=== PATIENT | female | born 1965 | race Caucasian/White ===

== ENCOUNTER 2016-03-29 09:23 | Inpatient (IN) | payer MEDICAID ==
[2016-03-29] MEDS ORDERED: Pharmacy Review for Metformin - IV Contrast Given SCH ×2 (10:00→12:00)
[2016-03-29] MEDS ORDERED: MORPHINE 4 MG/ML INJECTION IV ONE (10:00)
[2016-03-29] MEDS ORDERED: NS 1,000 ML IV ONE (10:00)
[2016-03-29] MEDS ORDERED: ONDANSETRON HCL 4 MG/2 ML VIAL IV ONE (10:00)
[2016-03-29 10:21] LABS: AUTOMATED EOSINOPHIL 2.9 % (0-5); AUTOMATED LYMPH 41.2 % (17-44); AUTOMATED MONOCYTE 7.2 % (3-10); AUTOMATED NEUTROPHIL 47.7 % (45-76); MPV 9.2 fL (7.4-10.4)
[2016-03-29 10:25] LABS: ALLEN'S TEST PASS; BEb -0.3 (+/- 2); TCO2 29.1 MMOL/L (23-27)
[2016-03-29 10:32] LABS: ABG Draw Site Right Radial; ABG Draw Tech SPEMA
[2016-03-29 10:37] LABS: BLOOD UREA NITROGEN 20 MG/DL (7-17); CALC CORRECTED 8.6 MG/DL (8.4-10.2); CALCIUM 8.3 MG/DL (8.4-10.2); CALCULATED OSMOLALITY 277 MOs/Kg (270-290); CHLORIDE 107 mEq/L (98-107); GLUCOSE 120 MG/DL (70-99); SODIUM LEVEL 142 mEq/L (137-146)
[2016-03-29 10:38] LABS: PARTIAL THROMB. TIME 24.2 SEC (22-35)
[2016-03-29 10:53] LABS: LEUKOCYTES/URINE TRACE (NEGATIVE); NITRITE/URINE NEG (NEGATIVE); RBC/URINE 0-2 (0-5); URINE OCCULT BLOOD NEG (NEG/TRACE)
--- NOTE | 2016-03-29 11:06 | DIRPT ---
CLINICAL DATA: Hypoxia, headache for 3 days EXAM: CHEST 2 VIEW COMPARISON: 05/01/2015, 04/03/2015 FINDINGS: The heart size and mediastinal contours are within normal limits. Both lungs are clear. The visualized skeletal structures are unremarkable. IMPRESSION: No active cardiopulmonary disease. Electronically Signed By: Tatum Zhao On: 03/29/2016 11:03
--- NOTE | 2016-03-29 11:09 | DIRPT ---
CLINICAL DATA: Headaches EXAM: CT HEAD WITHOUT CONTRAST TECHNIQUE: Contiguous axial images were obtained from the base of the skull through the vertex without intravenous contrast. COMPARISON: 05/01/2015 FINDINGS: Some motion artifact is noted. The bony calvarium is intact. The ventricles are of normal size and configuration. No findings to suggest acute hemorrhage, acute infarction or space-occupying mass lesion are noted. IMPRESSION: No acute intracranial abnormality is noted. Some motion artifact is noted. Electronically Signed By: Jose Garcia M.D. On: 03/29/2016 11:06
[2016-03-29] MEDS ORDERED: KETOROLAC TROMETH 30 MG/ML VIAL IV STA (11:24)
[2016-03-29] MEDS ORDERED: HYDROmorphone 1 MG INJECTION IV ONE ×2 (11:26→14:15)
--- NOTE | 2016-03-29 13:19 | EDPRACDOC ---
- General Information Chief Complaint: Headache Stated Complaint: HEADACHE Time Seen by Provider: 03/29/16 09:41 Information Source: Patient Mode Of Arrival: Ambulance Home Medications: Home Medications Levothyroxine Sodium [Synthroid] 112 mcg PO DAILY 08/31/13 Lisinopril/Hydrochlorothiazide [Zestoretic 20-25 mg Tablet] 1 tab PO DAILY 12/01 Cholecalciferol (Vitamin D3) [Vitamin D3] 4,000 unit PO DAILY 04/03/15 Quetiapine Fumarate [Seroquel Xr] 400 mg PO QHS 04/03/15 Alprazolam [Xanax] 1 mg PO Q8H PRN 05/01/15 Allergies/Adverse Reactions: Allergies Allergy/AdvReac Type Severity Reaction Status Date / Time nitrofurantoin Allergy Severe Hives* Verified 03/29/16 09:49 macrocrystalline [From Macrodantin] amoxicillin [Amoxicillin] Allergy Unknown Rash-Genera Verified 03/29/16 09:49 lized sulfamethoxazole AdvReac Unknown Rash-Genera Verified 03/29/16 09:49 [From Septra] lized trimethoprim [From Septra] AdvReac Unknown Rash-Genera Verified 03/29/16 09:49 lized - History of Present Illness Onset: LAST NIGHT HPI: PT PRESENTS STATING SHE HAS A BURNING HEADACHE ON THE LEFT SIDE OF HER HEAD. STATES SHE HAS BLURRED VISION, NAUSEA AND VOMITING, AND BODY ACHES THAT BEGAN YESTERDAY. STATES THIS IS THE WORST HEADACHE OF HER LIFE Location: Reports: Occipital Pain Quality: Reports: Moderate, Worst Headache of life Modifying Factors: improves with: Exposure to light, Movement Relevant History of: Reports: Known Headache disorder Associated Signs and Symptoms: Reports: Nausea/Vomiting, Vision Changes. Denies : Stiff Neck ED Past Medical History - History Reviewed Yes Nurses notes reviewed and agree except as marked - Patient Medical History Cardiac History: Reports: Hypertension, Hypercholesterolemia Respiratory History: Reports: Asthma GI/ History: Denies: Urinary Tract Infection Psychological History: Reports: Anxiety. Denies: Depression Systemic History: Reports: Hypothyroidism Additional Past Medical History: CHRONIC PAIN Date of Last Radiation Treatment: N/A Date of Last Chemotherapy Date: N/A - Family Medical History Reports: Hypertension (MOTHER, FATHER, SISTERS), Diabetes (SISTER), Cancer (AUNT -BREAST), Stroke (SISTER), Cardiac Disorders (MOTHER AT 53 DC) - Social Medical History Smoking Status: Never smoker EDM Review of Systems - Review of Systems ROS Negative Except as Marked: Yes All systems reviewed and were negative except as marked - Physical Exam Constitutional: Alert Oriented to: Time, Person, Place Last recorded Vital Signs: Last Vital Signs Temp 98 F 03/29/16 09:29 Pulse 80 03/29/16 12:46 Resp 18 03/29/16 12:46 BP 138/91 03/29/16 12:46 Pulse Ox 90 L 03/29/16 12:46 Oxygen Pulse Oxygen Saturation 90 O2 Device Nasal Cannula Oxygen Flow Rate 2 Fraction of Inspired Oxygen ( FIO2) - HEENT Head: Normal ( normocephalic) Eye Exam: Normal (PERRL, EOMI, Sclera white) Oropharynx: Normal (Pharynx:Moist without exudate,Gums-no swelling) Tympanic Membrane: Normal Nose: No Symptoms Reported (septum midline) Neck: Normal (FROM, trachea at midline) - Respiratory/Cardiovascular Respiratory: Normal - CTA (BBS clear to auscultation without adventitious sounds ) Cardiovascular: Normal (RRR without murmur, gallop or rub) - GI Auscultation: Normal (NABS) Palpation: Normal (Soft,No rebound or guarding, non distended) Tenderness: Non tender Rankin's Sign: Negative Rectal Exam: Deferred - Musculoskeletal Back: Normal (Non-Tender) Extremities: Normal (Normal tone, Pulses 2+ No cyanosis or edema, FROM) - Integumentary Skin: Normal, Warm, Dry Lymphatics: Normal (no adenopathy) - Neurologic Memory Impaired: Normal Motor Function: Normal (Normal tone, Pulses 2+ No cyanosis or edema, FROM) Cranial Nerve: Normal (CN II-X11 intact sensation, strength 5/5) Cerebellar: Normal Mood Description: Normal Perception: Normal - Differential Diagnosis Migraine, Hypertensive, Other - Results 03/29/16 10:08 03/29/16 10:08 WBC 5.6 xk/uL (3.8-10.8) 03/29/16 10:08 RBC 4.66 xM/uL (4.20-5.40) 03/29/16 10:08 Hgb 12.3 g/dL (12.0-16.0) 03/29/16 10:08 Hct 38.6 % (36-47) 03/29/16 10:08 MCV 83 fL (81-99) 03/29/16 10:08 MCH 26.5 pg (27-32) L 03/29/16 10:08 MCHC 32.0 g/dl (33-36) L 03/29/16 10:08 RDW 15.6 % (11.5-14.5) H 03/29/16 10:08 Plt Count 214 xk/uL (130-400) 03/29/16 10:08 MPV 9.2 fL (7.4-10.4) 03/29/16 10:08 Neut % (Auto) 47.7 % (45-76) 03/29/16 10:08 Lymph % (Auto) 41.2 % (17-44) 03/29/16 10:08 Mcdonald % (Auto) 7.2 % (3-10) 03/29/16 10:08 Eos % (Auto) 2.9 % (0-5) 03/29/16 10:08 Baso % (Auto) 1.0 % (0-2) 03/29/16 10:08 Absolute Neuts (auto) 2.63 xk/uL (1.7-8.2) 03/29/16 10:08 Absolute Lymphs (auto) 2.30 xk/uL (0.65-4.75) 03/29/16 10:08 PT 10.0 SEC (9.2-11.2) 03/29/16 10:08 INR 1.0 03/29/16 10:08 APTT 24.2 SEC (22-35) 03/29/16 10:08 Puncture Site Right radial 03/29/16 10:15 pH 7.290 pH UNITS (7.35-7.45) L 03/29/16 10:15 pCO2 57.0 mmHg (35-45) H 03/29/16 10:15 pO2 58.0 mmHg (80-100) L 03/29/16 10:15 HCO3 27.4 MMOL/L (22-26) H 03/29/16 10:15 Total CO2 29.1 MMOL/L (23-27) H 03/29/16 10:15 Base Excess -0.3 (+/- 2) 03/29/16 10:15 FiO2 % 21 03/29/16 10:15 Specimen Drawn By Spema 03/29/16 10:15 Sodium 142 mEq/L (137-146) 03/29/16 10:08 Potassium 4.4 mEq/L (3.5-5.1) 03/29/16 10:08 Chloride 107 mEq/L (98-107) 03/29/16 10:08 Carbon Dioxide 25 mMOL/L (22-33) 03/29/16 10:08 Anion Gap 14 mEq/L (8-16) 03/29/16 10:08 BUN 20 MG/DL (7-17) H 03/29/16 10:08 Creatinine 0.90 MG/DL (0.52-1.04) 03/29/16 10:08 Estimated GFR (MDRD) > 60 mL/min (>=60) 03/29/16 10:08 Glucose 120 MG/DL (70-99) H 03/29/16 10:08 Calculated Osmolality 277 MOs/Kg (270-290) 03/29/16 10:08 Calcium 8.3 MG/DL (8.4-10.2) L 03/29/16 10:08 Corrected Calcium 8.6 MG/DL (8.4-10.2) 03/29/16 10:08 Total Bilirubin 0.4 MG/DL (0.2-1.3) 03/29/16 10:08 AST 29 IU/L (14-36) 03/29/16 10:08 ALT 33 IU/L (9-52) 03/29/16 10:08 Alkaline Phosphatase 63 IU/L (38-126) 03/29/16 10:08 Creatine Kinase 70 IU/L (30-134) 03/29/16 10:08 Troponin I 0.01 ng/mL (<.04) 03/29/16 10:08 Jsh-P-Weduqmptcva Pept 133 pg/mL (0-450) 03/29/16 10:08 Total Protein 7.0 G/DL (6.3-8.2) 03/29/16 10:08 Albumin 3.7 G/DL (3.5-5.0) 03/29/16 10:08 Urine Color Yellow 03/29/16 10:36 Urine Clarity Sl cldy 03/29/16 10:36 Urine pH 6.0 (5.0-8.0) 03/29/16 10:36 Ur Specific Pep 1.010 (1.003-1.035) 03/29/16 10:36 Urine Protein Neg (NEG/TRACE) 03/29/16 10:36 Urine Glucose (UA) Neg (NEGATIVE) 03/29/16 10:36 Urine Ketones Neg (NEGATIVE) 03/29/16 10:36 Urine Occult Blood Neg (NEG/TRACE) 03/29/16 10:36 Urine Nitrite Neg (NEGATIVE) 03/29/16 10:36 Urine Bilirubin Neg (NEGATIVE) 03/29/16 10:36 Urine Urobilinogen <2.0 MG/DL (0-1) 03/29/16 10:36 Ur Leukocyte Esterase Trace (NEGATIVE) H 03/29/16 10:36 Urine RBC 0-2 (0-5) 03/29/16 10:36 Urine WBC 5-10 (0-5) H 03/29/16 10:36 Ur Epithelial Cells Occ 03/29/16 10:36 Urine Bacteria Few (NEG/FEW) 03/29/16 10:36 Microbiology 03/29/16 10:10 Influenza Type A Antigen Screen - Final N/P - Naso/Pharyngeal NEGATIVE Please note: A NEGATIVE result does not exclude an influenza virus infection. It is a presumptive result and, if required, confirmation should be done using either a virus culture or an FDA-cleared influenza A&B molecular assay. ("NORMAL" value = "NEGATIVE".) Influenza Type B Antigen Screen - Final NEGATIVE Please note: A NEGATIVE result does not exclude an influenza virus infection. It is a presumptive result and, if required, confirmation should be done using either a virus culture or an FDA-cleared influenza A&B molecular assay. ("NORMAL" value = "NEGATIVE".) Lab Results 03/29/16 03/29/16 03/29/16 10:36 10:15 10:08 WBC RBC Hgb Hct MCV MCH MCHC RDW Plt Count MPV Neut % (Auto) Lymph % (Auto) Mcdonald % (Auto) Eos % (Auto) Baso % (Auto) Absolute Neuts (auto) Absolute Lymphs (auto) PT 10.0 INR 1.0 APTT 24.2 Puncture Site Right radial pH 7.290 L pCO2 57.0 H pO2 58.0 L HCO3 27.4 H Total CO2 29.1 H Base Excess -0.3 FiO2 % 21 Specimen Drawn By Spema Sodium Potassium Chloride Carbon Dioxide Anion Gap BUN Creatinine Estimated GFR (MDRD) Glucose Calculated Osmolality Calcium Corrected Calcium Total Bilirubin AST ALT Alkaline Phosphatase Creatine Kinase Troponin I Dkz-X-Ndxepcyluzs Pept Total Protein Albumin Urine Color Yellow Urine Clarity Sl cldy Urine pH 6.0 Ur Specific Pep 1.010 Urine Protein Neg Urine Glucose (UA) Neg Urine Ketones Neg Urine Occult Blood Neg Urine Nitrite Neg Urine Bilirubin Neg Urine Urobilinogen <2.0 Ur Leukocyte Esterase Trace H Urine RBC 0-2 Urine WBC 5-10 H Ur Epithelial Cells Occ Urine Bacteria Few 03/29/16 03/29/16 03/29/16 10:08 10:08 10:08 WBC 5.6 RBC 4.66 Hgb 12.3 Hct 38.6 MCV 83 MCH 26.5 L MCHC 32.0 L RDW 15.6 H Plt Count 214 MPV 9.2 Neut % (Auto) 47.7 Lymph % (Auto) 41.2 Mcdonald % (Auto) 7.2 Eos % (Auto) 2.9 Baso % (Auto) 1.0 Absolute Neuts (auto) 2.63 Absolute Lymphs (auto) 2.30 PT INR APTT Puncture Site pH pCO2 pO2 HCO3 Total CO2 Base Excess FiO2 % Specimen Drawn By Sodium 142 Potassium 4.4 Chloride 107 Carbon Dioxide 25 Anion Gap 14 BUN 20 H Creatinine 0.90 Estimated GFR (MDRD) > 60 Glucose 120 H Calculated Osmolality 277 Calcium 8.3 L Corrected Calcium 8.6 Total Bilirubin 0.4 AST 29 ALT 33 Alkaline Phosphatase 63 Creatine Kinase 70 Troponin I 0.01 Ypl-P-Cyezlqizmjm Pept 133 Total Protein 7.0 Albumin 3.7 Urine Color Urine Clarity Urine pH Ur Specific Pep Urine Protein Urine Glucose (UA) Urine Ketones Urine Occult Blood Urine Nitrite Urine Bilirubin Urine Urobilinogen Ur Leukocyte Esterase Urine RBC Urine WBC Ur Epithelial Cells Urine Bacteria - EKG EKG #1 EKG Time: 09:35 -: Yes EKG interpreted by me Rate: bpm: 82 [place]: Normal Rhythm: NSR Block: None Hypertrophy: None ST: Old, Ant, Infarct - Departure Condition: Stable Education/Counseling Given To: Patient Education/Counseling Given Regarding: Diagnosis, Treatment, Prognosis, Follow Up Referrals: Jayde Taylor NP [Primary Care Provider] - One Week
[2016-03-29 13:33] LABS: CPK TOTAL WITH POSSIBLE MB 62 IU/L (30-134)
--- NOTE | 2016-03-29 13:51 | DIRPT ---
CLINICAL DATA: Acute hypoxemia. EXAM: CT ANGIOGRAPHY CHEST WITH CONTRAST TECHNIQUE: Multidetector CT imaging of the chest was performed using the standard protocol during bolus administration of intravenous contrast. Multiplanar CT image reconstructions and MIPs were obtained to evaluate the vascular anatomy. CONTRAST: 100 mL Isovue 370 COMPARISON: Chest CT on 03/17/2008 FINDINGS: Mediastinum/Lymph Nodes: No pulmonary emboli or thoracic aortic dissection identified. Heart size is at the upper limits of normal. No evidence of pericardial effusion. No masses or pathologically enlarged lymph nodes identified. Lungs/Pleura: No pulmonary mass, infiltrate, or effusion. Mild scarring noted in inferior lingula. Sub-cm pulmonary nodule in lateral right lung base and small bulla in lateral left lung base remains stable. Upper abdomen: No acute findings. Musculoskeletal: No chest wall mass or suspicious bone lesions identified. Review of the MIP images confirms the above findings. IMPRESSION: No evidence of pulmonary embolism or other active disease within the thorax. Electronically Signed By: Reji Coronado M.D. On: 03/29/2016 13:48
[2016-03-29] MEDS ORDERED: ALBUTEROL 0.083% 3 ML NEB NEB STA (14:08)
--- NOTE | 2016-03-29 14:35 | HISTPHYS ---
- Chief Complaint Cough past week started dry and now coughing up yellow material also complains left sided headache - History of Present Illness Primary care provider is Mallory @ Dr. Cho's office. Patient very pleasant 50-year-old obese white female whose smokes denies it herself. She comes into the emergency room today complaining of achy sensation all over particularly the left frontal region of her head for the past 3 days, similar to previous migraines not exactly the same. She says the headaches her the worst in her life. She was given Toradol in the emergency room with some relief. Most recently she has noticed that her dry cough has become productive of yellowish phlegm. She complains of some wheezing. She has a history of bipolar disorder and is disabled from this as well as chronic pain associated with a knee injury and herniated lumbar disc. 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 Hypertension hypothyroidism are to other issues with which she deals. - Medical History Cardiac History: Reports: Hypertension, Hypercholesterolemia Respiratory History: Reports: Asthma GI/ History: Denies: Urinary Tract Infection Musculoskeletal History: Reports: Arthritis (Chronic low back pain associated with herniated disc) Systemic History: Reports: Hypothyroidism Psychological History: Reports: Anxiety. Denies: Depression - Medictions/Allergies Allergies nitrofurantoin macrocrystalline [From Macrodantin] Allergy (Severe, Verified 09:49) Hives* amoxicillin [Amoxicillin] Allergy (Unknown, Verified 03/29/16 09:49) Rash-Generalized sulfamethoxazole [From Septra] Adverse Reaction (Unknown, Verified 03/29/16 09: 49) Rash-Generalized trimethoprim [From Septra] Adverse Reaction (Unknown, Verified 03/29/16 09:49) Rash-Generalized Current Medication List: Reviewed Home Medications Levothyroxine Sodium [Synthroid] 112 mcg PO DAILY 08/31/13 Lisinopril/Hydrochlorothiazide [Zestoretic 20-25 mg Tablet] 1 tab PO DAILY 12/01 Cholecalciferol (Vitamin D3) [Vitamin D3] 4,000 unit PO DAILY 04/03/15 Quetiapine Fumarate [Seroquel Xr] 400 mg PO QHS 04/03/15 Alprazolam [Xanax] 1 mg PO Q8H PRN 05/01/15 - Family History Reports: Hypertension (MOTHER, FATHER, SISTERS), Diabetes (SISTER), Cancer (AUNT -BREAST), Stroke (SISTER), Cardiac Disorders (MOTHER AT 53 ND) - Social History Travel Outside of [place] in the Last 3 Months?: No Lives: with Spouse Smoking Status: Never smoker (Unfortunately her smokes) Social History: Denies: Alcohol Use, Substance Use Disorder - Review of Systems Constitutional: Fatigue, Weakness Eyes: No Symptoms Reported (No blurry vision, visual changes, eye pain, or eye redness.) Ears: No Symptoms Reported (No ear pain or discharge) Nose: No Symptoms Reported (No nasal discharge/congestion or bleeding) Mouth: No Symptoms Reported (No oropharyngeal lesions or erythema) Throat/Neck: No Symptoms Reported (No throat pain or swelling.No oropharyngeal lesions or erythema.) Respiratory: Cough, Sputum (Yellowish sputum) Cardiovascular: No Symptoms Reported (No chest pain or palpitations.) Neurological: Headache (Migraine), Tingling (Hands and arms) Musculoskeletal:: Chronic low back pain Integumentary: No Symptoms Reported (no rashes or lesions) Allergic/Immunologic: No Symptoms Reported (no rashes or lesions) Hematologic: No Symptoms Reported (No chronic anemia, bleeding, or easy bruising.), Other (Lymphatics- no lymph node swelling or pain.) Endocrine: Hypothyroidism Psychiatric: No Symptoms Reported (Fully oriented, with normal and appropriate affect.) - Physical Exam Vital Signs: Initial Vitals Temperature 98 F 03/29/16 09:29 Pulse Rate 79 03/29/16 09:29 Respiratory Rate 20 03/29/16 09:29 Blood Pressure 172/112 H 03/29/16 09:29 Pulse Oxygen Saturation 94 03/29/16 09:29 Constitutional: Alert (Awake, Fully oriented. Normal and appropriate affect.Well appearing. Well nourished.), No apparent distress Oriented to: Time, Person, Place - HEENT Head: Normal (normocephalic, atraumatic.), Other (No cervical lymphadenopathy. No supraclavicular lymphadenopathy. Neck: No palpable mass, supple , trachea midline.) Eye: Normal (pupils equal, reactive to light, and round; EOMI, Sclera white) Oropharynx: Normal (Pharynx: Moist without exudate,Gums-no swelling, No oropharyngeal lesions or erythema, Mucous membranes are dry.) ENT EAC: Normal (No oropharyngeal lesions or erythema. Mucous membranes are dry. ) TMJ: Normal Nose: No Symptoms Reported (septum midline, Nares patent, without discharge or bleeding.) Respiratory: Diminished, Rhonchi (Rare rhonchi), Wheezes Cardiovascular: Normal (RRR , Normal S1, S2. No murmurs, rubs, or gallops. PMI non-displaced. Carotids: no carotid bruits. No bradycardia or tachycardia. DP pulses 2+ bilaterally.) - GI Auscultation: Normal (normal active sounds) Palpation: Normal (Soft,non distended,nontender. No hepatosplenomegaly.) Tenderness: Non tender (No rebound or guarding) Rankin's Sign: Negative - Exam Deferred: Yes - Musculoskeletal Back: Normal (Non-Tender) Extremities: Normal (Normal tone, DP pulses 2+ bilaterally, No cyanosis or edema bilaterally, FROM bilaterally.) Spine: normal alignment, limited range of motion - Integumentary Skin: Normal (Clean, dry, and intact. No rashes. No lesions.) Lymphatics: Normal (No cervical lymphadenopathy. No supraclavicular lymphadenopathy.) - Neurologic Memory Impaired: Normal Motor Function: Normal (Motor 5/5 throughout.Normal tone, Pulses 2+ No cyanosis or edema, FROM) Cranial Nerve: Normal (CN II-XII intact sensation, strength 5/5) Cerebellar: Normal. negative: Ataxia, Past-Pointing, Tremor Mood Description: Normal (Fully oriented. Normal and appropriate affect.) Thought: Coherent Perception: Normal (Normal and appropriate affect.) - Focused CV Perfusion Exam Vital Signs: Last Vital Signs Temp 98 F 03/29/16 09:29 Pulse 73 03/29/16 13:14 Resp 20 03/29/16 13:14 BP 138/91 03/29/16 13:14 Pulse Ox 96 03/29/16 13:14 - Lab Results 03/29/16 10:08 03/29/16 10:08 Laboratory Results - last 24 hr 03/29/16 03/29/16 03/29/16 10:08 10:08 10:08 WBC 5.6 RBC 4.66 Hgb 12.3 Hct 38.6 MCV 83 MCH 26.5 L MCHC 32.0 L RDW 15.6 H Plt Count 214 MPV 9.2 Neut % (Auto) 47.7 Lymph % (Auto) 41.2 [place] % (Auto) 7.2 Eos % (Auto) 2.9 Baso % (Auto) 1.0 Absolute Neuts (auto) 2.63 Absolute Lymphs (auto) 2.30 PT INR APTT Puncture Site pH pCO2 pO2 HCO3 Total CO2 Base Excess FiO2 % Specimen Drawn By Sodium 142 Potassium 4.4 Chloride 107 Carbon Dioxide 25 Anion Gap 14 BUN 20 H Creatinine 0.90 Estimated GFR (MDRD) > 60 Glucose 120 H Calculated Osmolality 277 Calcium 8.3 L Corrected Calcium 8.6 Total Bilirubin 0.4 AST 29 ALT 33 Alkaline Phosphatase 63 Creatine Kinase 70 Troponin I 0.01 Trq-Y-Dqzctndkwsh Pept 133 Total Protein 7.0 Albumin 3.7 Urine Color Urine Clarity Urine pH Ur Specific [place] Urine Protein Urine Glucose (UA) Urine Ketones Urine Occult Blood Urine Nitrite Urine Bilirubin Urine Urobilinogen Ur Leukocyte Esterase Urine RBC Urine WBC Ur Epithelial Cells Urine Bacteria 03/29/16 03/29/16 03/29/16 10:08 10:15 10:36 WBC RBC Hgb Hct MCV MCH MCHC RDW Plt Count MPV Neut % (Auto) Lymph % (Auto) [place] % (Auto) Eos % (Auto) Baso % (Auto) Absolute Neuts (auto) Absolute Lymphs (auto) PT 10.0 INR 1.0 APTT 24.2 Puncture Site Right radial pH 7.290 L pCO2 57.0 H pO2 58.0 L HCO3 27.4 H Total CO2 29.1 H Base Excess -0.3 FiO2 % 21 Specimen Drawn By Spema Sodium Potassium Chloride Carbon Dioxide Anion Gap BUN Creatinine Estimated GFR (MDRD) Glucose Calculated Osmolality Calcium Corrected Calcium Total Bilirubin AST ALT Alkaline Phosphatase Creatine Kinase Troponin I Zyg-A-Ysqpkturujw Pept Total Protein Albumin Urine Color Yellow Urine Clarity Sl cldy Urine pH 6.0 Ur Specific [place] 1.010 Urine Protein Neg Urine Glucose (UA) Neg Urine Ketones Neg Urine Occult Blood Neg Urine Nitrite Neg Urine Bilirubin Neg Urine Urobilinogen <2.0 Ur Leukocyte Esterase Trace H Urine RBC 0-2 Urine WBC 5-10 H Ur Epithelial Cells Occ Urine Bacteria Few 03/29/16 03/29/16 13:14 16:05 WBC RBC Hgb Hct MCV MCH MCHC RDW Plt Count MPV Neut % (Auto) Lymph % (Auto) [place] % (Auto) Eos % (Auto) Baso % (Auto) Absolute Neuts (auto) Absolute Lymphs (auto) PT INR APTT Puncture Site pH pCO2 pO2 HCO3 Total CO2 Base Excess FiO2 % Specimen Drawn By Sodium Potassium Chloride Carbon Dioxide Anion Gap BUN Creatinine Estimated GFR (MDRD) Glucose Calculated Osmolality Calcium Corrected Calcium Total Bilirubin AST ALT Alkaline Phosphatase Creatine Kinase 62 Troponin I < 0.01 < 0.01 Oht-W-Jhgvyovaadv Pept Total Protein Albumin Urine Color Urine Clarity Urine pH Ur Specific [place] Urine Protein Urine Glucose (UA) Urine Ketones Urine Occult Blood Urine Nitrite Urine Bilirubin Urine Urobilinogen Ur Leukocyte Esterase Urine RBC Urine WBC Ur Epithelial Cells Urine Bacteria - Assessment (1) Acute respiratory failure J96.00 - ACUTE RESPIRATORY FAILURE, UNSP W HYPOXIA OR HYPERCAPNIA Acute Present on Admission: Yes Qualifiers: Respiratory failure complication: hypoxia Qualified Code(s): J96.01 - Acute respiratory failure with hypoxia O2 sat dropped into the 80s initially and warrants administration of supplemental O2. (2) COPD exacerbation J44.1 - CHRONIC OBSTRUCTIVE PULMONARY DISEASE W (ACUTE) EXACERBATION Acute Present on Admission: Yes Inhalation therapy consisting of DuoNeb, Singulair, IV antibiotics consisting Rocephin Zithromax and intensive respiratory therapy. Reluctant to give her steroids given her history of bipolar disorder. More likely to give her inhaled steroids. (3) Headache R51 - HEADACHE Acute Present on Admission: Yes IV Toradol was used successfully in the emergency room which I will continue for the next 24-48 hours only. (4) Hypertensive urgency I10 - ESSENTIAL (PRIMARY) HYPERTENSION Acute Present on Admission: Yes Continuation of previous antihypertensive therapy is ordered. (5) Hypothyroidism E03.9 - HYPOTHYROIDISM, UNSPECIFIED Acute Present on Admission: Yes Qualifiers: Hypothyroidism type: acquired Qualified Code(s): E03.9 - Hypothyroidism, unspecified Check TSH and continue previous Synthroid. (6) Secondhand smoke exposure Z77.22 - CNTCT W AND EXPSR TO ENVIRON TOBACCO SMOKE (ACUTE) (CHRONIC) Chronic Present on Admission: Yes I advised her to go outside and smoke is it was damaging to her lungs. Case Care Discussed with: Patient, Nursing Staff, Resource Management Total Time: One Hour 18 minutes Critical Care: No Code: [id number]
[2016-03-29] MEDS: AZITHROMYCIN 500 MG in D5W 250 ML IV SCH (15:57)
[2016-03-29 15:58] VITALS: BMI 37.7
[2016-03-29] MEDS ORDERED: Vaccine Screening Complete SCH (17:00)
[2016-03-29] MEDS ORDERED: KETOROLAC TROMETH 30 MG/ML VIAL IV SCH (18:00)
[2016-03-29] MEDS: CEFTRIAXONE 1 GM in D5W 100 ML IV SCH (18:06)
[2016-03-29] MEDS ORDERED: ALBUTEROL 0.083% 3 ML NEB NEB PRN (18:37)
[2016-03-29] MEDS ORDERED: Non-Formulary Medication ITEM (Alprazolam [Xanax] 1 MG) PO PRN (18:44)
[2016-03-29] MEDS ORDERED: ACETAMINOPHEN 325 MG SUPP PR PRN (18:50)
[2016-03-29] MEDS ORDERED: PROMETHAZINE 25 MG/ML VIAL IV PRN (18:50)
[2016-03-29] MEDS ORDERED: TUSSIONEX 5 ML ORAL SYRINGE PO PRN (18:50)
[2016-03-29] MEDS ORDERED: BISACODYL 10 MG SUPP PR PRN (18:50)
[2016-03-29] MEDS ORDERED: ONDANSETRON HCL 4 MG/2 ML VIAL IV PRN (18:50)
[2016-03-29] MEDS ORDERED: SENNA CONCENTRATE TAB PO PRN (18:50)
[2016-03-29] MEDS: ALPRAZOLAM 0.5 MG TAB PO PRN (19:40)
[2016-03-29] MEDS: OXYCODONE HCL 5 MG TABLET PO SCH (19:42)
[2016-03-29] MEDS: ENOXAPARIN 40 MG/0.4 ML PFS SQ SCH (19:42)
[2016-03-29] MEDS: PROBIOTIC BLEND TAB PO SCH (19:42)
[2016-03-29] MEDS: MONTELUKAST SODIUM 10 MG TAB PO SCH (19:42)
[2016-03-29] MEDS: AMLODIPINE 10 MG TAB PO SCH (19:43)
[2016-03-29] MEDS: Albuterol/Ipratropium Neb 3 ML NEB NEB SCH (19:50)
[2016-03-29] MEDS: BUDESONIDE 0.5 MG NEB NEB SCH (19:52)
[2016-03-29] MEDS ORDERED: Non-Formulary Medication ITEM (Oxycodone Hcl [Oxycodone Immediate Release] 10 MG) PO SCH (21:00)
[2016-03-29] MEDS ORDERED: QUETIAPINE FUMARATE 400 MG PO SCH (21:00)
[2016-03-29] MEDS: BENZONATATE 100 MG PERLES PO SCH (21:19)
[2016-03-29] MEDS: QUETIAPINE FUMARATE PO SCH (21:20)
[2016-03-29] MEDS: IBUPROFEN 400 MG TAB PO PRN (22:10)
[2016-03-30] MEDS: Albuterol/Ipratropium Neb 3 ML NEB NEB SCH ×4 (01:09→19:39)
[2016-03-30] MEDS: ACETAMINOPHEN 325 MG/TAB TABLET PO PRN ×2 (01:51→10:07)
[2016-03-30] MEDS: PANTOPRAZOLE 40 MG TAB PO SCH (05:33)
[2016-03-30] MEDS: BENZONATATE 100 MG PERLES PO SCH ×3 (05:33→19:34)
[2016-03-30] MEDS: IBUPROFEN 400 MG TAB PO PRN ×2 (05:35→10:07)
[2016-03-30] MEDS ORDERED: LEVOTHYROXINE 112 MCG (0.112 MG) TAB PO SCH (06:00)
[2016-03-30] MEDS: BUDESONIDE 0.5 MG NEB NEB SCH ×2 (07:49→19:40)
[2016-03-30] MEDS: ALPRAZOLAM 0.5 MG TAB PO PRN ×3 (08:13→23:30)
[2016-03-30] MEDS: OXYCODONE HCL 5 MG TABLET PO SCH ×4 (08:13→19:34)
[2016-03-30] MEDS ORDERED: LISINOPRIL PO SCH (09:00)
[2016-03-30] MEDS ORDERED: CHOLECALCIFEROL 4000 UNIT PO SCH (09:00)
[2016-03-30] MEDS ORDERED: [UNRECOGNIZED DRUG - OTHER] PO SCH (09:00)
[2016-03-30] MEDS ORDERED: HYDROCHLOROTHIAZIDE PO SCH (09:00)
[2016-03-30] MEDS: AMLODIPINE 10 MG TAB PO SCH (09:36)
[2016-03-30] MEDS: HYDROCHLOROTHIAZIDE 25 MG TAB PO SCH (09:36)
[2016-03-30] MEDS: LISINOPRIL 20 MG TAB PO SCH (09:37)
[2016-03-30] MEDS: CHOLECALCIFEROL 1000 UNITS TAB PO SCH (11:53)
[2016-03-30] MEDS: PROBIOTIC BLEND TAB PO SCH ×2 (11:53→17:36)
[2016-03-30] MEDS ORDERED: Fioricet Tablet PO ONE (14:45)
[2016-03-30] MEDS: AZITHROMYCIN 500 MG in D5W 250 ML IV SCH (15:53)
--- NOTE | 2016-03-30 15:53 | GENMEDPROG ---
Subjective Note: Patient complains of a headache. States that when she takes Imitrex she gets chest pains. These are related to nicotine or caffeine withdrawal. She is currently off oxygen and appears to be doing very well will check and ambulating O2 sat in the morning if satisfactory plan discharge. Notes Reviewed: Yes Events from last night noted and discussed with Clinical Staff Current Medication List: Reviewed Currently: Denies: Cough, Wheezing, SOB DVT Prophylaxis: Yes - Physical Examination Vital Signs and I&O: Last Vital Signs Temp 98 F 03/30/16 15:02 Pulse 100 03/30/16 15:02 Resp 20 03/30/16 15:02 BP 110/73 03/30/16 15:02 Pulse Ox 96 03/30/16 15:02 Oxygen Pulse Oxygen Saturation 96 O2 Device Room Air Oxygen Flow Rate 2 Fraction of Inspired Oxygen ( FIO2) Intake & Output 03/27/16 03/28/16 03/29/16 03/30/16 23:59 23:59 23:59 23:59 Intake Total 2010 1200 Output Total 250 900 Balance 1761 300 Patient's weight 93.582 kg 93.077 kg General: Alert, Oriented x3, No acute distress, Well appearing, Well nourished HEENT: Normal (Normocephalic, atraumatic;EOMI.Sclera white, Nares patent, without discharge or bleeding. No oropharyngeal lesions or erythema. Mucous membranes are dry.) Neck: Non-tender, Full range of motion, Normal Trachea alignment, Normal inspection (No cervical lymphadenopathy. No supraclavicular lymphadenopathy.), No Masses palpable, Supple Lymphatics: Normal (No cervical lymphadenopathy. No supraclavicular lymphadenopathy.) Respiratory: Diminished, Rhonchi (Rare rhonchi) Cardiovascular: Regular rate and rhythm (No bradycardia or tachycardia), Normal S1, No Gallops,Rubs/Murmurs, Normal S2, Good Pedal Pulses (DP pulses 2+ bilaterally) GI: Normal bowel sounds (normal active sounds), Soft (non-distended), Non tender , No hepatospenomegaly, No masses Extremities/Musculoskeletal: Normal pulses (DP pulses 2+ bilaterally) Skin: Warm,Dry and Intact, No rashes, No significant lesion Neurological: Strength at 5/5 X4 ext (Motor 5/5 throughout.), Normal tone, Cranial nerves 3-12 NL ( 2-12 grossly intact.) Lab/DI/Studies Reviewed: Laboratory Results - last 24 hr 03/29/16 03/29/16 16:05 16:05 Troponin I < 0.01 TSH 21.40 H - Assessment (1) Acute respiratory failure Acute J96.00 - ACUTE RESPIRATORY FAILURE, UNSP W HYPOXIA OR HYPERCAPNIA Qualifiers: Respiratory failure complication: hypoxia Qualified Code(s): J96.01 - Acute respiratory failure with hypoxia Comment/Plan: O2 sat dropped into the 80s initially and warrants administration of supplemental O2. Will check ambulating O2 sats in a.m.. (2) COPD exacerbation Acute J44.1 - CHRONIC OBSTRUCTIVE PULMONARY DISEASE W (ACUTE) EXACERBATION Comment/Plan: Inhalation therapy consisting of DuoNeb, Singulair, IV antibiotics consisting Rocephin Zithromax and intensive respiratory therapy. Reluctant to give her steroids given her history of bipolar disorder. (3) Hypothyroidism Acute E03.9 - HYPOTHYROIDISM, UNSPECIFIED Qualifiers: Hypothyroidism type: acquired Qualified Code(s): E03.9 - Hypothyroidism, unspecified Comment/Plan: Check TSH and continue previous Synthroid. (4) Secondhand smoke exposure Chronic Z77.22 - CNTCT W AND EXPSR TO ENVIRON TOBACCO SMOKE (ACUTE) (CHRONIC) Comment/Plan: I advised her to go outside and smoke is it was damaging to her lungs. (5) Headache Acute R51 - HEADACHE Comment/Plan: Patient still with a headache Toradol was not effective in relieving her pain. She cannot take Imitrex. Will give her Fioricet and a caffeinated beverage to see if that assists in pain relief. (6) Hypertensive urgency Acute I10 - ESSENTIAL (PRIMARY) HYPERTENSION Comment/Plan: Continuation of previous antihypertensive therapy is ordered. - Plan Check ambulating O2 sat in a.m. if stable discharge home. Disposition Plan: Home. Case Care Discussed with: Patient, Nursing Staff Education/Counseling Given To: Patient Education/Counseling Given Regarding: Diagnosis, Treatment, Prognosis, Follow Up , Disposition Plan Total Time: 45 minutes. Critical Care: No Couseling Time (>50% in counseling/coordination): No
[2016-03-30] MEDS: CEFTRIAXONE 1 GM in D5W 100 ML IV SCH (17:36)
[2016-03-30] MEDS: ENOXAPARIN 40 MG/0.4 ML PFS SQ SCH (17:36)
[2016-03-30] MEDS: MONTELUKAST SODIUM 10 MG TAB PO SCH (19:35)
[2016-03-30] MEDS: QUETIAPINE FUMARATE PO SCH (19:35)
[2016-03-31] MEDS: Albuterol/Ipratropium Neb 3 ML NEB NEB SCH ×3 (01:05→13:52)
[2016-03-31] MEDS: PANTOPRAZOLE 40 MG TAB PO SCH (05:44)
[2016-03-31] MEDS: BENZONATATE 100 MG PERLES PO SCH ×2 (05:44→12:58)
[2016-03-31] MEDS: IBUPROFEN 400 MG TAB PO PRN (05:46)
[2016-03-31] MEDS ORDERED: LEVOTHYROXINE 150 MCG (0.15 MG)TAB PO SCH (06:00)
[2016-03-31] MEDS ORDERED: LEVOTHYROXINE 125 MCG (0.125 MG) TAB PO SCH (06:00)
[2016-03-31 06:33] VITALS: BP 117/72; PULSE 100; TEMP 98.5
[2016-03-31 07:34] LABS: BLOOD UREA NITROGEN 16 MG/DL (7-17); CALCIUM 9.1 MG/DL (8.4-10.2); CALCULATED OSMOLALITY 271 MOs/Kg (270-290); CHLORIDE 103 mEq/L (98-107); GLUCOSE 131 MG/DL (70-99); SODIUM LEVEL 139 mEq/L (137-146)
[2016-03-31 07:39] LABS: AUTOMATED BASOPHIL 0.5 % (0-2); AUTOMATED EOSINOPHIL 1.3 % (0-5); AUTOMATED LYMPH 21.7 % (17-44); AUTOMATED MONOCYTE 5.2 % (3-10); AUTOMATED NEUTROPHIL 71.3 % (45-76); MPV 9.3 fL (7.4-10.4)
[2016-03-31] MEDS: OXYCODONE HCL 5 MG TABLET PO SCH ×2 (07:53→12:58)
[2016-03-31] MEDS: ALPRAZOLAM 0.5 MG TAB PO PRN (07:53)
[2016-03-31] MEDS: AMLODIPINE 10 MG TAB PO SCH (07:54)
[2016-03-31] MEDS: HYDROCHLOROTHIAZIDE 25 MG TAB PO SCH (07:54)
[2016-03-31] MEDS: LISINOPRIL 20 MG TAB PO SCH (07:55)
[2016-03-31] MEDS: BUDESONIDE 0.5 MG NEB NEB SCH (09:43)
[2016-03-31] MEDS: CHOLECALCIFEROL 1000 UNITS TAB PO SCH (12:58)
[2016-03-31] MEDS: PROBIOTIC BLEND TAB PO SCH (12:58)
--- NOTE | 2016-03-31 13:38 | PCM.DCS92 ---
- Final/Secondary Discharge Diagnosis (1) Acute respiratory failure Acute J96.00 - ACUTE RESPIRATORY FAILURE, UNSP W HYPOXIA OR HYPERCAPNIA Present on Admission: Yes hypoxia J96.01 - Acute respiratory failure with hypoxia Comment: Ambulating O2 sats on the day of discharge is 95-97%. On room air. (2) COPD exacerbation Acute J44.1 - CHRONIC OBSTRUCTIVE PULMONARY DISEASE W (ACUTE) EXACERBATION Present on Admission: Yes Comment: Inhalation therapy consisting of DuoNeb, Singulair, IV antibiotics consisting Rocephin Zithromax and intensive respiratory therapy. Reluctant to give her steroids given her history of bipolar disorder. (3) Hypothyroidism Acute E03.9 - HYPOTHYROIDISM, UNSPECIFIED Present on Admission: Yes acquired E03.9 - Hypothyroidism, unspecified Comment: Check TSH and continue previous Synthroid. TSH was elevated but does recently increased by her primary care physician will recommend she follow up with primary. (4) Secondhand smoke exposure Chronic Z77.22 - CNTCT W AND EXPSR TO ENVIRON TOBACCO SMOKE (ACUTE) (CHRONIC) Present on Admission: Yes Comment: I advised her to go outside and smoke is it was damaging to her lungs. (5) Headache Acute R51 - HEADACHE Present on Admission: Yes Comment: Patient still with a headache Toradol was not effective in relieving her pain. She cannot take Imitrex. Will give her Fioricet and a caffeinated beverage to see if that assists in pain relief. (6) Hypertensive urgency Acute I10 - ESSENTIAL (PRIMARY) HYPERTENSION Present on Admission: Yes Comment: Continuation of previous antihypertensive therapy is ordered. (7) Bronchopneumonia Acute J18.0 - BRONCHOPNEUMONIA, UNSPECIFIED ORGANISM Present on Admission: Yes Discharge Disposition: Home Discharge Condition: Improved Cognitive Discharge Status: Unimpaired Fuctional Discharge Status: Independent Physician Follow up/Referrals: Jayde Taylor NP [Primary Care Provider] - One Week Home Medications / New Prescriptions: New Probiotic Blend [Inga Q] 1 tab PO BIDLS #60 tablet Ibuprofen Tablet [Motrin] 600 mg PO Q6H PRN #30 tablet PRN Reason: Mild Pain Or Fever Above 100.4 Cefuroxime [Ceftin] 250 mg PO Q12H #10 tablet Azithromycin [Zithromax] 250 mg PO DAILY #3 tablet Continue Levothyroxine Sodium [Synthroid] 112 mcg PO DAILY Lisinopril/Hydrochlorothiazide [Zestoretic 20-25 mg Tablet] 1 tab PO DAILY Quetiapine Fumarate [Seroquel Xr] 400 mg PO QHS Cholecalciferol (Vitamin D3) [Vitamin D3] 4,000 unit PO DAILY Alprazolam [Xanax] 1 mg PO Q8H PRN PRN Reason: Anxiety Oxycodone HCl [Oxycodone Immediate Release] 10 mg PO QID Amlodipine [Norvasc] 10 mg PO DAILY Discharge Home Medication List Levothyroxine Sodium [Synthroid] 112 mcg PO DAILY 08/31/13 [History Confirmed ] Lisinopril/Hydrochlorothiazide [Zestoretic 20-25 mg Tablet] 1 tab PO DAILY 12/01 [History Confirmed 03/29/16] Cholecalciferol (Vitamin D3) [Vitamin D3] 4,000 unit PO DAILY 04/03/15 [History Confirmed 03/29/16] Quetiapine Fumarate [Seroquel Xr] 400 mg PO QHS 04/03/15 [History Confirmed ] Alprazolam [Xanax] 1 mg PO Q8H PRN 05/01/15 [History Confirmed 03/29/16] Amlodipine [Norvasc] 10 mg PO DAILY 03/29/16 [History Confirmed 03/29/16] Oxycodone HCl [Oxycodone Immediate Release] 10 mg PO QID 03/29/16 [History Confirmed 03/29/16] Azithromycin [Zithromax] 250 mg PO DAILY #3 tablet 03/31/16 [Rx] Cefuroxime [Ceftin] 250 mg PO Q12H #10 tablet 03/31/16 [Rx] Ibuprofen Tablet [Motrin] 600 mg PO Q6H PRN #30 tablet 03/31/16 [Rx] Probiotic Blend [Inga Q] 1 tab PO BIDLS #60 tablet 03/31/16 [Rx] New Discharge Medications (Rx) Azithromycin [Zithromax] 250 mg PO DAILY #3 tablet 03/31/16 [Rx] Cefuroxime [Ceftin] 250 mg PO Q12H #10 tablet 03/31/16 [Rx] Ibuprofen Tablet [Motrin] 600 mg PO Q6H PRN #30 tablet 03/31/16 [Rx] Probiotic Blend [Inga Q] 1 tab PO BIDLS #60 tablet 03/31/16 [Rx] O2 Device: Room Air Diet at Discharge: As Tolerated, Regular, Low Salt Activity: As Tolerated, No Heavy Lifting (nothing over 30 lbs), No Driving ( while using pain medications) Call Office For: Worsening Symptoms, Fever over 101 F, Pain Uncontrolled By Meds - DC Summary Notes Hospital Course Note:: Discharge summary on patient named TIFFANY NELSON admitted to [facility] on 03/29/16 by Rehan Driscoll MD. Date of discharge is []. Pleasant 50-year-old female admitted to our facility with a broncho pneumonia. She had significant amounts of hypoxemia and required supplemental oxygen as well as IV antibiotics to improve her condition. At this point she was able this morning to ambulate on room air with sats of 95-97%. She has been switched to oral antibiotics and has now reached maximal benefit of hospitalization. She is stable for discharge home. Total Time: 45 min - Physical Exam Vital Signs: Last Vital Signs Temp 98.5 F 03/31/16 06:31 Pulse 100 03/31/16 06:31 Resp 18 03/31/16 06:31 BP 117/72 03/31/16 06:31 Pulse Ox 95 03/31/16 09:44 Oxygen Pulse Oxygen Saturation 95 O2 Device Room Air Oxygen Flow Rate 2 Fraction of Inspired Oxygen ( FIO2) Constitutional: Alert (Awake, Fully oriented. Normal and appropriate affect.Well appearing. Well nourished.), No apparent distress Oriented to: Time, Person, Place - HEENT Head: Normal (normocephalic, atraumatic.), Other (No cervical lymphadenopathy. No supraclavicular lymphadenopathy. Neck: No palpable mass, supple , trachea midline.) Eye: Normal (pupils equal, reactive to light, and round; EOMI, Sclera white) Oropharynx: Normal (Pharynx: Moist without exudate,Gums-no swelling, No oropharyngeal lesions or erythema, Mucous membranes are dry.) ENT EAC: Normal (No oropharyngeal lesions or erythema. Mucous membranes are dry. ) TMJ: Normal Nose: No Symptoms Reported (septum midline, Nares patent, without discharge or bleeding.) - Respiratory/Cardiovascular Respiratory: Diminished, Rhonchi (Rare rhonchi) Cardiovascular: Normal (RRR , Normal S1, S2. No murmurs, rubs, or gallops. PMI non-displaced. Carotids: no carotid bruits. No bradycardia or tachycardia. DP pulses 2+ bilaterally.) - GI Auscultation: Normal (normal active sounds) Palpation: Normal (Soft,non distended,nontender. No hepatosplenomegaly.) Tenderness: Non tender (No rebound or guarding) Rankin's Sign: Negative - Musculoskeletal Back: Normal (Non-Tender) Extremities: Normal (Normal tone, DP pulses 2+ bilaterally, No cyanosis or edema bilaterally, FROM bilaterally.) - Integumentary Skin: Normal (Warm dry no rashes) Lymphatics: Normal (No cervical lymphadenopathy. No supraclavicular lymphadenopathy.) - Neurologic Memory Impaired: Normal Motor Function: Normal (Motor 5/5 throughout.Normal tone, Pulses 2+ No cyanosis or edema, FROM) Cranial Nerve: Normal (CN II-XII intact sensation, strength 5/5) Cerebellar: Normal. negative: Ataxia, Past-Pointing, Tremor Mood Description: Normal (Fully oriented. Normal and appropriate affect.) Thought: Coherent Perception: Normal (Normal and appropriate affect.) - Other Exam Other Exam Findings: Laboratory Results - last 24 hr 03/31/16 03/31/16 06:15 06:15 WBC 8.2 RBC 4.55 Hgb 12.3 Hct 37.3 MCV 82 MCH 27.1 MCHC 33.1 RDW 15.1 H Plt Count 192 MPV 9.3 Neut % (Auto) 71.3 Lymph % (Auto) 21.7 [place] % (Auto) 5.2 Eos % (Auto) 1.3 Baso % (Auto) 0.5 Absolute Neuts (auto) 5.82 Absolute Lymphs (auto) 1.72 Sodium 139 Potassium 4.1 Chloride 103 Carbon Dioxide 28 Anion Gap 12 BUN 16 Creatinine 0.90 Estimated GFR (MDRD) > 60 Glucose 131 H Calculated Osmolality 271 Calcium 9.1 Magnesium 1.80
== END 2016-03-31 14:15 | disposition home or self-care (01) | DRG 189 ==
LOC: ED 09:23 → MPS3 14:35
PROVIDERS: ADMIT Internal Medicine; ATTEND Hospitalist
PROC: 039B3ZZ Drainage of Right Radial Artery, Percutaneous Approach (ICD-10-PCS; principal; 2016-03-29)
DX: J96.01 Acute respiratory failure with hypoxia (principal); J18.0 Bronchopneumonia, unspecified organism; J44.1 Chronic obstructive pulmonary disease with (acute) exacerbation; J44.0 Chronic obstructive pulmonary disease with (acute) lower respiratory infection; E03.9 Hypothyroidism, unspecified; Z77.22 Contact with and (suspected) exposure to environmental tobacco smoke (acute) (chronic); R51 Headache; I10 Essential (primary) hypertension; E66.9 Obesity, unspecified; E78.00 Pure hypercholesterolemia, unspecified; J45.909 Unspecified asthma, uncomplicated; M19.90 Unspecified osteoarthritis, unspecified site; F41.9 Anxiety disorder, unspecified; Z88.0 Allergy status to penicillin; Z88.8 Allergy status to other drugs, medicaments and biological substances; Z79.899 Other long term (current) drug therapy; Z68.35 Body mass index [BMI] 35.0-35.9, adult
CPT/HCPCS: 36415; 36600; 70450; 71020; 71275; 80048; 80053; 81001; 82550; 82803; 83735; 83880; 84443; 84484; 85025; 85610; 85730; 87040; 87804; 93005; 94640; 96361; 96372; 96374; 96375; 96376; 98960; 99285; A9698; J0456; J0696; J1170; J1650; J1885; J2270; J2405; J3490; J7060; J7070; J7620